=== PATIENT | female | born 1980 | race Caucasian/White ===

== ENCOUNTER 2020-02-29 11:24 | Inpatient (IN) | payer OTHER ==
--- NOTE | 2020-02-29 13:20 | Non Stress Test Report ---
Non Stress Test Datetime Report Generated by CPN: 02/29/2020 13:20 DEMOGRAPHIC EGA NST: 37.1 INDICATION Indication for Study (NST) Other: r/o labor VITAL SIGNS Temperature - NST: 98.0 Pulse - NST: 67 RESP - NST: 18 NBPSYS NST: 137 NBPDIA NST: 94 MONITORING Monitor Explained: Monitor Explained; Test Explained; Patient Verbalized Understanding Time on Monitor: 02/29/2020 12:03 Time off Monitor: 02/29/2020 13:17 NST Duration: 74 NST INTERVENTIONS NST Interventions: IV Fluids Physician Notified NST: A Turner CNM BABY A: [id number] BABY A Movement : Present Contraction Frequency : 2-4 FHR Baseline : 135 Accelerations : 15X15 Decelerations : None Variability : Moderate 6-25bpm NST Review: Meets Criteria for Reactive NST NST Review and Verified By : Andre Leon RN NST Results: Reactive NST REPORT Report Trigger: Send Report
[2020-02-29 14:00] LABS: ABSOLUTE BASOPHILS # (AUTO) 0.1 10^3/uL (0.0-0.2); ABSOLUTE EOSINOPHILS # (AUTO) 0.1 10^3/uL (0.0-0.6); ABSOLUTE MONOCYTES (AUTO) 0.5 10^3/uL (0.1-1.4); ABSOLUTE NEUT (AUTO) 7.4 10^3/uL (1.7-8.2); BASOPHILS % (AUTO) 0.7 % (0-2); EOSINOPHILS % (AUTO) 0.9 % (0-6); HEMATOCRIT 37.7 % (36.0-47.0); HEMOGLOBIN 13.3 g/dL (12.0-15.5); LYMPHOCYTES % (AUTO) 19.7 % (13-45); MEAN CORPUSCULAR HEMOGLOBIN 31.3 pg (27.0-33.4); MEAN CORPUSCULAR HGB CONC 35.3 g/dL (32.0-36.0); MEAN CORPUSCULAR VOLUME 89 fl (80-97); MONOCYTES % (AUTO) 5.3 % (3-13); RED BLOOD COUNT 4.25 10^6/uL (3.72-5.28); RED CELL DISTRIBUTION WIDTH 13.7 % (11.5-14.0); SEGMENTED NEUTROPHILS % (AUTO) 73.4 % (42-78); TOTAL CELLS COUNTED % (AUTO) 100 %; WHITE BLOOD COUNT 10.1 10^3/uL (4.0-10.5)
[2020-02-29] MEDS ORDERED: RINGERS SOLUTION,LACTATED 1,000 ML IV ONE (14:15)
[2020-02-29 14:21] LABS: URINE AMPHETAMINES SCREEN NEGATIVE; URINE BARBITURATES SCREEN NEGATIVE; URINE BENZODIAZEPINES SCREEN NEGATIVE; URINE COCAINE SCREEN NEGATIVE; URINE MARIJUANA (THC) SCREEN NEGATIVE; URINE METHADONE SCREEN NEGATIVE; URINE PHENCYCLIDINE SCREEN NEGATIVE
[2020-02-29 14:25] LABS: ALBUMIN 3.7 g/dL (3.5-5.0); ALKALINE PHOSPHATASE 116 U/L (38-126); ANION GAP 10 (5-19); ASPARTATE AMINO TRANSFERASE 38 U/L (14-36); BILIRUBIN,DIRECT 0.3 mg/dL (0.0-0.4); BILIRUBIN,TOTAL 0.8 mg/dL (0.2-1.3); BLOOD UREA NITROGEN 7 mg/dL (7-20); CALCIUM 9.8 mg/dL (8.4-10.2); CARBON DIOXIDE 16 mmol/L (22-30); CHLORIDE 108 mmol/L (98-107); GLUCOSE 80 mg/dL (75-110); POTASSIUM 4.1 mmol/L (3.6-5.0); TOTAL PROTEIN 6.8 g/dL (6.3-8.2); URIC ACID 4.7 mg/dL (2.5-7.0)
[2020-02-29 14:26] LABS: PLATELET COUNT 101 10^3/uL (150-450)
[2020-02-29 14:38] LABS: UR PRO/CREAT RATIO RESULT 0.2 mg/mg (0.0-0.2); URINE CREATININE 58.1 mg/dL (16-327); URINE PROTEIN 12.4 mg/dL (<12)
[2020-02-29] MEDS ORDERED: NORMAL SALINE 250 ML IV PRN ×2 (15:16)
[2020-02-29] MEDS ORDERED: CITRIC ACID/SODIUM CITRATE ORAL SOLN 15 ML UDCUP ONE (15:21)
[2020-02-29] MEDS ORDERED: CEFAZOLIN 2 GM/D5W RTU 2 GM/50 ML RTUPB IV ONE (15:21)
[2020-02-29] MEDS ORDERED: CEFAZOLIN SODIUM 2 GM in DEXTROSE 5%-WATER 50 ML IV PRN (15:25)
[2020-02-29] MEDS ORDERED: OXYTOCIN 10 UNIT/ML VIAL ONE (15:45)
[2020-02-29] MEDS ORDERED: MIDAZOLAM 2 MG/2 ML INJ ONE ×2 (15:46→16:53)
[2020-02-29] MEDS ORDERED: OXYTOCIN/0.9 % SODIUM CHLORIDE 30 UNIT/500 ML RTUINJ ONE (15:46)
[2020-02-29] MEDS ORDERED: ONDANSETRON HCL INJ/PF 4 MG/2 ML SDV ONE ×2 (15:46→17:49)
[2020-02-29] MEDS ORDERED: PHENYLEPHRINE HCL INJ/PF 10 MG/1 ML SDV ONE (15:46)
--- NOTE | 2020-02-29 16:18 | Admission Physical ---
Datetime Report Generated by CPN: 02/29/2020 16:18 CURRENT ADMISSION Chief Complaint: Uterine Contractions Indication for Induction: Not Applicable Admit Impression : Term, Intrauterine Admit Plan: Admit to Unit; Initiate Section Protocol ALLERGIES Medication Allergies: Yes Medication Allergies: Sulfa (Sulfonamide Antibiotics) (02/29/2020) Latex: Latex Allergies Food Allergies: n/a Environmental Allergies: n/a OBSTETRICAL HISTORY EDC: 03/20/2020 00:00 : 4 Para: 3 Term: 1 : 1 SAB: 1 IAB: 0 Ectopic: 0 Livin Cesareans: 2 VBACs: 0 Multiple Births: 1 Gestational Diabetes: No Rh Sensitization: No Incompetent Cervix: No LYNSEY: No Infertility: No ART Treatment: No Uterine Anomaly: No IUGR: No Hx Previous C/S: Yes Macrosomia: No Hx Loss/Stillborn: No PIH: Yes Hx : No Placenta Previa/Abruption: No Depression/PP Depression: No PTL/PROM: No Post Hemorrhage: No Current Procedures: Ultrasound Obstetrical History Comments: G1- Twin delivery 36.5, c/s pre-e, rt oopherectomy@17wks 09/28/2011 G2- SAB 2012 G3- C/S 38wks 05/11/2018 SEE RECORDS Alcohol: No Marijuana : No Cocaine: No Other Illicit Drugs: No Cigarettes: Never Smoker. 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 Heart Disease: No Hosp/Surgery: Yes Autoimmune Disorder: No Anesthetic Complications: No Kidney Disease: No Abnormal Pap Smear: No Neuro/Epilepsy: No Psychiatric Disorders: No Other Medical Diseases: No Hepatitis/Liver Disease: No Significant Family History: No Varicosities/Phlebitis: No Trauma/Violence : No Thyroid Dysfunction: No Medical History Comments: cholesytecomy 2013, breast reduction 2002, tube removal 2011, c/section 2018 INFECTIOUS HISTORY Gonorrhea: No Genital Herpes: No Chlamydia: No Tuberculosis: No Syphilis: No Hepatitis: No HIV/AIDS Exposure: No Rash or Viral Illness: No HPV: No PHYSICAL EXAM General: Normal HEENT: Normal Neurologic: Normal Thyroid: Normal Heart: Normal Lungs: Normal Breast: Deferred Back: Normal Abdomen: Normal Genitourinary Exam: Normal Extremities: Normal DTRs: Normal Pelvic Type: Adequate Vital Signs: Reviewed VAGINAL EXAM Dilatation: 0 Effacement: 0 Station: -3 MEMBRANES Pooling: Negative Membranes: Intact FETUS A EGA: 37.1 Monitoring: External US FHR- Baseline: 120 Variability: Moderate 6-25bpm Decelerations: None Presentation: Vertex Admit Comment: PT has an headache with mild range pressures and plts at 101. We will plan a c section with tubal ligation. PLANS FOR LABOR AND DELIVERY Labor and Delivery: None Pain Management: Spinal Feeding Preference: Formula Circumcision: N/A INFORMED CONSENT Signature: with User ID: [email or web address]
[2020-02-29] MEDS ORDERED: RINGERS SOLUTION,LACTATED 1,000 ML IV PRN (17:38)
[2020-02-29] MEDS ORDERED: SIMETHICONE 80 MG TAB.CHEW PO PRN (17:38)
[2020-02-29] MEDS ORDERED: DIPH/PERTUSS(ACELL)/TETANUS VAC/PF 0.5 ML SYR (>=10YO) IM PRN (17:38)
[2020-02-29] MEDS ORDERED: OXYCODONE-ACETAMINOPHEN 5-325 MG TABLET PO PRN ×2 (17:38)
[2020-02-29] MEDS ORDERED: PROMETHAZINE HCL INJ 25 MG/1 ML VIAL IV PRN (17:38)
[2020-02-29] MEDS ORDERED: MEASLES,MUMPS&RUBELLA VACC/PF 0.5 ML VIAL SUBCUT PRN (17:38)
[2020-02-29] MEDS ORDERED: ACETAMINOPHEN 1,000 MG/100 ML RTUPB IV PRN (17:38)
[2020-02-29] MEDS ORDERED: ACETAMINOPHEN 325 MG TABLET PO PRN (17:38)
[2020-02-29] MEDS ORDERED: OXYTOCIN/0.9 % SODIUM CHLORIDE 30 UNIT/500 ML RTUINJ IV PRN (17:38)
--- NOTE | 2020-02-29 17:49 | Operative Report ---
Operative Report DATE OF SURGERY: 02/29/20 PREOPERATIVE DIAGNOSIS: Repeat via low transverse uterine incision, m ildly elevated blood pressures, headache, platelets of 101, desires tubal ligation on remaining fallopian tube. POSTOPERATIVE DIAGNOSIS: Same OPERATION: Repeat via low transverse uterine incision, tubal ligation of the left fallopian tube with Filshie clip. SURGEON: GUILLERMO KING FIBER PRODUCT CUTTING MACHINE OPERATOR: MARYA SERRA ANESTHESIA: Spinal TISSUE REMOVED OR ALTERED: Placenta and left fallopian tube COMPLICATIONS: Large uterus with very thin lower uterine segment ESTIMATED BLOOD LOSS: 400 cc INTRAOPERATIVE FINDINGS: Large uterus, extremely thin lower uterine segment. A lso scarring at the level of the fascia and abdominal musculature PROCEDURE: The patient presented from the office with elevated blood pressures. She also complained of headache and platelets were 101. For these reasons we elected to proceed with a repeat as she was 37 weeks. Patient was taken the OR and a spinal was placed. She is placed in supine position. Her abdomen was prepared and draped in a sterile fashion her bladder was drained with a Watson catheter. A low transverse incision was made and carried down the level of fascia which was nicked in the midline. The fascial incision was extended bilaterally using curved Lockett scissors. The rectus muscles were in the midline and there is rather dense scarring at this area. The peritoneum was entered without incident. The bladder blade was placed in the lower uterine segment was identified. It was noted to be extremely thin. An incision was made and extended with fingertips. The baby was delivered with some fundal pressure headfirst. The cord was doubly clamped and cut and the infant was passed off to the pediatricians crying. The placenta was manually extracted with membranes. The uterus was wiped clean with moist lap sponge. I was unable to externalize the uterus because of its very large size. The uterine incision was closed with a running locking layer of 0 Vicryl. It was closed from the left edge of the incision to the midline and then a second suture closing from the right edge of the incision to the midline. This was done with a 0 chromic in a running locking fashion. There was some bleeding in the midline that was difficult to identify and Dr. Og scrubbed in at this point to assist. There was an extension of the uterine incision in the midline and this was closed with several interrupted sutures of 0 chromic in a [id number] fashion which stopped the bleeding. The pelvis was irrigated of fluid and suctioned free hemostasis was assured. The left fallopian tube was identified and followed out to its fimbriated end and a Filshie clip was placed at the mid isthmic portion. The right fallopian tube was reported to be absent. This area was very difficult to visualize because I was unable to asked generalized uterus. Next the abdominal wall peritoneum and rectus muscles were closed with a running 2-0 chromic stitch. The subfascial tissues were inspected for bleeding and the fascia was closed with a running 0 Vicryl in 2 segments. The wound was irrigated. Parul's layer was closed with a 2-0 plain gut stitch and skin closed with a running subcuticular 4-0 undyed Vicryl stitch. Patient was taken to the PACU. Mother and baby are both doing well.
[2020-02-29] MEDS ORDERED: ACETAMINOPHEN 1,000 MG/100 ML RTUPB IV ONE (17:57)
[2020-02-29] MEDS ORDERED: MORPHINE SULFATE 10 MG/ML INJ ONE (18:18)
[2020-02-29 19:39] LABS: HEMATOCRIT 38.5 % (36.0-47.0); HEMOGLOBIN 13.3 g/dL (12.0-15.5); MEAN CORPUSCULAR HEMOGLOBIN 30.9 pg (27.0-33.4); MEAN CORPUSCULAR HGB CONC 34.5 g/dL (32.0-36.0); MEAN CORPUSCULAR VOLUME 89 fl (80-97); PLATELET COUNT 160 10^3/uL (150-450); RED BLOOD COUNT 4.31 10^6/uL (3.72-5.28); RED CELL DISTRIBUTION WIDTH 13.3 % (11.5-14.0); WHITE BLOOD COUNT 11.1 10^3/uL (4.0-10.5)
--- NOTE | 2020-02-29 19:42 | Delivery Summary ---
Del Sum A-C Datetime Report Generated by CPN: 02/29/2020 19:42 DELIVERY PERSONNEL DELIVERY PERSONNEL: [id number] Delivery Doctor:: Fernando Flores MD FILLING STATION LABORER:: Jony Marques CRNA Labor and Delivery Nurse:: Krystal Lovell RN General Manager Farm:: Krystal Lovell RN Neonatal Nurse Practitioner:: GISSEL Flynn Nursery Nurse:: Nisha Quesada RN Supply Analyst/SUPERVISOR CUSTOMER RECORDS DIVISION: Annelise Champion CST Supply Analyst/SUPERVISOR CUSTOMER RECORDS DIVISION: Sharon Deutsch, RESEARCH PHYSIOLOGIST MATERNAL INFORMATION Delivery Anesthesia: Spinal Medications After Delivery: Pitocin 30 Units in 500ml NS/D5W Meds After Delivery Comment: 30 units of pitocin in 500mL NS/D5W x2 Delivery QBL: 1650 Maternal Complications: Hemorrhage LABOR SUMMARY EDC: 03/20/2020 00:00 No. Babies in Womb: 1 Attempted: No Labor Anesthesia: None LABOR INFORMATION Reason for Induction: Not Applicable Oxytocin: N/A Group B Beta Strep: negative Steroids Given: None Reason Steroids Not Administered: Not Applicable MEMBRANES Membranes Rupture Method: Artificial Rupture of Membranes: 02/29/2020 16:38 Length of Rupture (hr): -0.02 Amniotic Fluid Color: Clear Amniotic Fluid Amount: Large Amniotic Fluid Odor: Normal STAGES OF LABOR Stage 3 hr: 0 Stage 3 min: 3 VAGINAL DELIVERY Episiotomy: None Laceration #1: None Laceration Extension #1: N/A Laceration Repair: Not Applicable Sponge Count Correct: N/A Sharps Count Correct: N/A CSECTION DELIVERY Primary Indication: Repeat Elective Secondary Indication: Other Other Secondary Indication: elevated bp with BOONE and low platelets CSection Urgency: Non-Scheduled CSection Incidence: Repeat Labor: N/A Elective: Nonelective CSection Incision: Lower Uterine Transverse BABY A INFORMATION Delivery Date/Time: 02/29/2020 16:37 Method of Delivery: Nurse Controlled Delivery: No Born in Route : No : N/A Forceps: N/A Vacuum Extraction: N/A Shoulder Dystocia : No PRESENTATION/POSITION BABY A Presentation: Cephalic Cephalic Presentation: Vertex Breech Presentation: N/A PLACENTA INFORMATION BABY A Placenta Delivery Time : 02/29/2020 16:40 Placenta Method of Delivery: Manual Removal Placenta Status: Delivered SCORES BABY A Heart Rate 1 min: >100 bpm Resp Effort 1 min: Good Cry Reflex Irritability 1 min: Cough or Sneeze or Pulls Away Muscle Tone 1 min: Active Motion Color 1 min: Blue/Pale Resuscitation Effort 1 min: Tactile Stimulation SCORE 1 MIN: 8 Heart Rate 5 min: >100 bpm Resp Effort 5 min: Good Cry Reflex Irritability 5 min: Cough or Sneeze or Pulls Away Muscle Tone 5 min: Active Motion Color 5 min: Body [place], Extremities Blue Resuscitation Effort 5 min: N/A SCORE 5 MIN: 9 INFANT INFORMATION BABY A Gestational Age at Delivery: 37.1 Gestational Status: Early Term- 37- 38.6 Weeks Outcome : Liveborn Infant Condition : Stable Infant Sex: Female IDENTIFICATION BABY A Infant Verification Date/Time: 02/29/2020 18:32 ID Band Number: [id number] Mother's Name Verified: Yes RN Verifying : Irineo Chakraborty, RN Additional Verifying Personnel: Varsha Lovell RN WEIGHT/LENGTH BABY A Birthweight (gm): 3470 Infant Weight (lb): 7 Infant Weight (oz): 10 Length (in): 20.00 Infant Length (cm): 50.80 CORD INFORMATION BABY A No. Cord Vessels: 3 Nuchal Cord : N/A Cord Blood Taken: Yes-For Eval (Mom's Blood Type - or O+) Suction: Mouth ASSESSMENT BABY A Complications: None Physical Findings at Delivery: Within Normal Limits Respirations: Appears Normal Skin to Skin: No Merchant Police/ALS Called : Yes Care By: Camilo Quesada RN Transferred To: [facility] BABY B INFORMATION : N/A
--- NOTE | 2020-02-29 19:42 | Birth Certificate Data ---
Cert Data Datetime Report Generated by CPN: 02/29/2020 19:42 CERTIFICATE DATA Delivery Provider: Fernando Flores MD (02/29/2020 19:20:Krystal Lovell RN) 47a. Care: Yes (02/29/2020 11:34:Krystal Lovell RN) 47b. Date of First Visit: 08/31/2019 00:00 (02/29/2020 11:34:Krystal Lovell RN) 47c. Date of Last Visit: 02/29/2020 00:00 (02/29/2020 11:34:Krystal Lovell RN) 47d. Number of Visits: 12 (02/29/2020 11:34:Krystal Lovell RN) 48a. Number of Prev Live Births: 2 (02/29/2020 11:34:Krystal Lovell RN) 48b. Now Livin (02/29/2020 11:34:Krystal Lovell RN) 48c. Live Births Now : -1 (02/29/2020 11:34:QS system process) 48d. Date of Last Live : 05/11/2018 00:00 (02/29/2020 11:34:Krystal Lovell RN) 48e. Losses: 1 (02/29/2020 11:34:Krystal Lovell RN) RISK FACTORS IN THIS 49a. Diabetes: No (02/29/2020 11:34:Krystal Lovell RN) 49b. Hypertension: No (02/29/2020 11:34:Krystal Lovell RN) Type of Hypertension: Gestational (PIH, Pre-eclampsia) (02/29/2020 11:34:Krystal Lovell RN) 49c. Previous Births: 1 (02/29/2020 11:34:Krystal Lovell RN) 49d. Stillborns: No (02/29/2020 11:34:Krystal Lovell RN) 49d. IUGR: No (02/29/2020 11:34:Krystal Loevll RN) 49e. Infertility Treatment: No (02/29/2020 11:34:Krystal Lovell RN) 49f. Previous Cesareans: 2 (02/29/2020 11:34:Krystal Lovell RN) Mother's Height 50b. Height Inches: 73 (02/29/2020 19:01:QS system process) Mother's Weight 51a. Pre- Weight (lbs): 224 (02/29/2020 11:34:Krystal Lovell RN) 51b. Weight at Delivery (lbs): 266 (02/29/2020 19:01:QS system process) Infections Present/Treated 53a. Gonorrhea: No (02/29/2020 11:34:Krystal Lovell RN) Results this Hospital Visit : Negative (02/29/2020 11:34:Krystal Lovell RN) 53b. Syphilis: No (02/29/2020 11:34:Krystal Lovell RN) 53c. Chlamydia: No (02/29/2020 11:34:Krystal Lovell RN) Results this Hospital Visit: Negative (02/29/2020 11:34:Krystal Lovell RN) 53d. Hepatitis B: No (02/29/2020 11:34:Krystal Lovell RN) Results this Hospital Visit: Negative (02/29/2020 11:34:Krystal Lovell RN) 53e. Hepatitis C: Negative (02/29/2020 11:34:Krystal Lovell RN) 53h. Mother Tested for HBsAG: Yes (02/29/2020 11:34:Krystal Lovell RN) 53i. Date Tested: 08/31/2019 00:00 (02/29/2020 11:34:Krystal Lovell RN) 53j. Test Result: Negative (02/29/2020 11:34:Krystal Lovell RN) Obstetric Procedures 54a, b, c. Obstetric Procedures: Ultrasound (02/29/2020 11:34:Krystal Lovell RN) Cigarette Smoking Cigarette Smoking: Never Smoker. [id number] (02/29/2020 11:34:Krystal Lovell RN) Onset of Labor 56a. PROM >12 Hrs: -0.02 (02/29/2020 11:34:QS system process) 57a. Induction of Labor: N/A (02/29/2020 11:34:Krystal Lovell RN) 57c. Non-Vertex Presentation A: Vertex (02/29/2020 11:34:Krystal Lovell RN) 57d. Steroids - Lung Mat: None (02/29/2020 11:34:Krystal Lovell RN) 57d. Steroids - Lung Mat: Not Applicable (02/29/2020 11:34:Krystal Lovell RN) 57g. Moderate/Heavy Meconium: Clear (02/29/2020 11:34:Krystal Lovell RN) 57h. Intolerance of Labor: Repeat Elective (02/29/2020 11:34:Krystal Lovell RN) : Other (02/29/2020 11:34:Krystal Lovell RN) : elevated bp with BOONE and low platelets (02/29/2020 11:34:Krystal Lovell RN) 57i. Epidural/Spinal Anesthesia: None (02/29/2020 11:34:Krystal Lovell RN) Method of Delivery 58a. Forceps - Unsuccessful A: N/A (02/29/2020 11:34:Meera Sales, ) 58b. Vacuum - Unsuccessful A: N/A (02/29/2020 11:34:Meera Speed Dating by Chantilly Lace, ) 58c. Presentation at 58c. Presentation at - A : Vertex (02/29/2020 11:34:Krystal Lovell RN) 58c. Presentation at - A : N/A (02/29/2020 11:34:[facility]) 58c. Presentation at - A : Cephalic (02/29/2020 11:34:Krystal Lovell RN) Final Route and Method of Del 58d. Baby A Route/Delivery: (02/29/2020 11:34:Meera Chakraborty RN) 58e. Trial of Labor Attempted: No (02/29/2020 11:34:Krystal Lovell RN) 58e. Trial of Labor Attempted A: N/A (02/29/2020 11:34:Meera Chakraborty RN) 58e. Trial of Labor Attempted B: N/A (02/29/2020 11:34:Krystal Lovell RN) Maternal Morbidity 59b. 3rd or 4th Degree Lacs: None (02/29/2020 11:34:Krystal Lovell RN) Birthweight Baby A: 3470 (02/29/2020 11:34:Krystal Lovell RN) 60a. Pounds : 7 (02/29/2020 11:34:QS system process) 60b. Ounces: 10 (02/29/2020 11:34:QS system process) 61. GA at Delivery Baby A: 37.1 (02/29/2020 11:34:Meera Sales, RN) : Early Term- 37- 38.6 Weeks (02/29/2020 11:34:QS system process) 62a. 5 Minute Baby A: 9 (02/29/2020 11:34:QS system process)
[2020-02-29] MEDS: KETOROLAC TROMETHAMINE INJ/PF 30 MG/1 ML SDV IV SCH (22:50)
[2020-03-01] MEDS: KETOROLAC TROMETHAMINE INJ/PF 30 MG/1 ML SDV IV SCH ×2 (05:26→14:05)
[2020-03-01 06:54] LABS: HEMATOCRIT 32.2 % (36.0-47.0); HEMOGLOBIN 11.3 g/dL (12.0-15.5); MEAN CORPUSCULAR HEMOGLOBIN 31.1 pg (27.0-33.4); MEAN CORPUSCULAR HGB CONC 35.3 g/dL (32.0-36.0); MEAN CORPUSCULAR VOLUME 88 fl (80-97); PLATELET COUNT 152 10^3/uL (150-450); RED BLOOD COUNT 3.64 10^6/uL (3.72-5.28); WHITE BLOOD COUNT 12.4 10^3/uL (4.0-10.5)
[2020-03-01] MEDS: IBUPROFEN 800 MG TABLET PO SCH ×4 (07:42→23:22)
--- NOTE | 2020-03-01 09:20 | PDOC PROGRESS REPORT ---
Subjective-OB Progress Note for:: 03/01/20 Subjective: Doing well, feeling better, bottle feeding, pain under control, eating and drinking, no flatus Physical Exam (OB) Vital Signs: Temp Pulse Resp BP Pulse Ox 97.2 F 71 14 134/68 H 96 03/01/20 08:00 03/01/20 08:00 03/01/20 08:00 03/01/20 08:00 03/01/20 08:00 Intake & Output 02/29/20 03/01/20 03/02/20 06:59 06:59 06:59 Intake Total 1100 Output Total 1100 Balance 0 Weight 120.5 kg - PIH/Pre-Eclampsia Clonus: Negative Headache: Absent Epigastric Pain: No Visual Changes: No - Incision: Dressing Closure Type: Opsite - Maternal Morbidity 59. Maternal Morbidity (serious complications experinced by the mother associated with labor and delivery: None of the above - Lochia Lochia Amount: Scant < 10 ml Lochia Color: Rubra/Red - Abdomen Description: Tender, Soft, Round Hernia Present: No Fundal Description: Firm, Midline Fundal Height: u/u - u/2 Objective-Diagnostic Laboratory: 03/01/20 06:40 02/29/20 13:48 02/29/20 02/29/20 02/29/20 13:48 13:48 15:42 WBC 10.1 RBC 4.25 Hgb 13.3 Hct 37.7 MCV 89 MCH 31.3 MCHC 35.3 RDW 13.7 Plt Count 101 L Seg Neutrophils % 73.4 Sodium 134.4 L Potassium 4.1 Chloride 108 H Carbon Dioxide 16 L Anion Gap 10 BUN 7 Creatinine 0.44 L Est GFR ( Amer) > 60 Glucose 80 Uric Acid 4.7 Calcium 9.8 Total Bilirubin 0.8 AST 38 H Alkaline Phosphatase 116 Total Protein 6.8 Albumin 3.7 Blood Type O POSITIVE Antibody Screen NEGATIVE 02/29/20 03/01/20 18:19 06:40 WBC 11.1 H 12.4 H RBC 4.31 3.64 L Hgb 13.3 11.3 L Hct 38.5 32.2 L MCV 89 88 MCH 30.9 31.1 MCHC 34.5 35.3 RDW 13.3 13.0 Plt Count 160 152 Seg Neutrophils % Sodium Potassium Chloride Carbon Dioxide Anion Gap BUN Creatinine Est GFR ( Amer) Glucose Uric Acid Calcium Total Bilirubin AST Alkaline Phosphatase Total Protein Albumin Blood Type Antibody Screen Assessment and Plan(PN) - Assessment and Plan (1) Tubal ligation status Is this a current diagnosis for this admission?: Yes (2) Status post repeat low transverse section Is this a current diagnosis for this admission?: Yes (3) Headache Qualifiers: Headache type: unspecified Is this a current diagnosis for this admission?: Yes (4) Gestational hypertension Qualifiers: Trimester: unspecified trimester Qualified Code(s): O13.9 - Gestational [-induced] hypertension without significant proteinuria, unspecified trimester Is this a current diagnosis for this admission?: Yes - Time Spent with Patient Time with patient: Less than 15 minutes Medications reviewed and adjusted accordingly: Yes - Disposition Anticipated Discharge Disposition: Home, Self Care Anticipated Discharge Timeframe: within 48 hours
[2020-03-01] MEDS: DOCUSATE SODIUM 100 MG CAPSULE PO SCH ×3 (10:30→18:55)
[2020-03-01] MEDS: PRENATAL VITAMIN W DHA CAPSULE PO SCH (11:12)
[2020-03-02] MEDS: IBUPROFEN 800 MG TABLET PO SCH (05:46)
[2020-03-02 09:09] VITALS: BP 131/71
--- NOTE | 2020-03-02 10:07 | PDOC DISCHARGE SUMMARY ---
Impression - Admit/DC Date/PCP Admission Date/Primary Care Provider: 02/29/20 15:25 GUILLERMO PEACE MD Discharge Date: 03/02/20 - Discharge Diagnosis (1) Gestational hypertension Is this a current diagnosis for this admission?: Yes (2) Headache Is this a current diagnosis for this admission?: Yes (3) Status post repeat low transverse section Is this a current diagnosis for this admission?: Yes (4) Tubal ligation status Is this a current diagnosis for this admission?: Yes - Additional Information Resuscitation Status: Full Code Discharge Diet: Regular Discharge Activity: Balance Activity w/Rest, No Lifting Over 10 Pounds, No Lifting/Push/Pulling, Pelvic Rest, No tub bath Referrals: GUILLERMO PEACE MD [Primary Care Provider] - Prescriptions: Oxycodone HCl/Acetaminophen [Percocet 5-325 mg Tablet] 1 tab PO Q4HP PRN #30 tablet PRN Reason: For Pain Scale 3-5 Ibuprofen [Motrin 800 mg Tablet] 800 mg PO Q8HP PRN #30 tablet PRN Reason: Home Medications: Vit,Calc76/Iron/Folic [Prenatabs Rx Tablet] 1 each PO DAILY 02/29/20 Ibuprofen [Motrin 800 mg Tablet] 800 mg PO Q8HP PRN #30 tablet 03/02/20 Oxycodone HCl/Acetaminophen [Percocet 5-325 mg Tablet] 1 tab PO Q4HP PRN #30 tablet 03/02/20 HPI Gestational Age: 37.1 Reason(s) for Admission: Onset of Labor, PIH Procedures: NST Intrapartum Procedure(s): : Low Cervical, Transverse Hospital Course 59. Maternal Morbidity (serious complications experinced by the mother associated with labor and delivery: None of the above Results Laboratory Results: WBC 12.4 10^3/uL (4.0-10.5) H 03/01/20 06:40 RBC 3.64 10^6/uL (3.72-5.28) L 03/01/20 06:40 Hgb 11.3 g/dL (12.0-15.5) L 03/01/20 06:40 Hct 32.2 % (36.0-47.0) L 03/01/20 06:40 MCV 88 fl (80-97) 03/01/20 06:40 MCH 31.1 pg (27.0-33.4) 03/01/20 06:40 MCHC 35.3 g/dL (32.0-36.0) 03/01/20 06:40 RDW 13.0 % (11.5-14.0) 03/01/20 06:40 Plt Count 152 10^3/uL (150-450) 03/01/20 06:40 Lymph % (Auto) 19.7 % (13-45) 02/29/20 13:48 [place] % (Auto) 5.3 % (3-13) 02/29/20 13:48 Eos % (Auto) 0.9 % (0-6) 02/29/20 13:48 Baso % (Auto) 0.7 % (0-2) 02/29/20 13:48 Absolute Neuts (auto) 7.4 10^3/uL (1.7-8.2) 02/29/20 13:48 Absolute Lymphs (auto) 2.0 10^3/uL (0.5-4.7) 02/29/20 13:48 Absolute Monos (auto) 0.5 10^3/uL (0.1-1.4) 02/29/20 13:48 Absolute Eos (auto) 0.1 10^3/uL (0.0-0.6) 02/29/20 13:48 Absolute Basos (auto) 0.1 10^3/uL (0.0-0.2) 02/29/20 13:48 Seg Neutrophils % 73.4 % (42-78) 02/29/20 13:48 Sodium 134.4 mmol/L (137-145) L 02/29/20 13:48 Potassium 4.1 mmol/L (3.6-5.0) 02/29/20 13:48 Chloride 108 mmol/L (98-107) H 02/29/20 13:48 Carbon Dioxide 16 mmol/L (22-30) L 02/29/20 13:48 Anion Gap 10 (5-19) 02/29/20 13:48 BUN 7 mg/dL (7-20) 02/29/20 13:48 Creatinine 0.44 mg/dL (0.52-1.25) L 02/29/20 13:48 Est GFR ( Amer) > 60 (>60) 02/29/20 13:48 Est GFR (MDRD) Non-Af > 60 (>60) 02/29/20 13:48 Glucose 80 mg/dL (75-110) 02/29/20 13:48 Uric Acid 4.7 mg/dL (2.5-7.0) 02/29/20 13:48 Calcium 9.8 mg/dL (8.4-10.2) 02/29/20 13:48 Total Bilirubin 0.8 mg/dL (0.2-1.3) 02/29/20 13:48 Direct Bilirubin 0.3 mg/dL (0.0-0.4) 02/29/20 13:48 Neonat Total Bilirubin Not Reportable 02/29/20 13:48 Neonat Direct Bilirubin Not Reportable 02/29/20 13:48 Neonat Indirect Bili Not Reportable 02/29/20 13:48 AST 38 U/L (14-36) H 02/29/20 13:48 ALT 14 U/L (<35) 02/29/20 13:48 Alkaline Phosphatase 116 U/L (38-126) 02/29/20 13:48 Lactate Dehydrogenase 307 U/L (120-246) H 02/29/20 13:48 Total Protein 6.8 g/dL (6.3-8.2) 02/29/20 13:48 Albumin 3.7 g/dL (3.5-5.0) 02/29/20 13:48 Urine Creatinine 58.1 mg/dL (16-327) 02/29/20 13:36 Protein/Creatinin Ratio 0.2 mg/mg (0.0-0.2) 02/29/20 13:36 Urine Total Protein 12.4 mg/dL (<12) H 02/29/20 13:36 Urine Opiates Screen NEGATIVE 02/29/20 13:36 Urine Methadone Screen NEGATIVE 02/29/20 13:36 Ur Barbiturates Screen NEGATIVE 02/29/20 13:36 Ur Phencyclidine Scrn NEGATIVE 02/29/20 13:36 Ur Amphetamines Screen NEGATIVE 02/29/20 13:36 U Benzodiazepines Scrn NEGATIVE 02/29/20 13:36 Urine Cocaine Screen NEGATIVE 02/29/20 13:36 U Marijuana (THC) Screen NEGATIVE 02/29/20 13:36 RPR NONREACTIVE (NONREACTIVE) 02/29/20 15:42 Influenza A (RT-PCR) NEGATIVE (NEGATIVE) 02/29/20 16:00 Influenza B (RT-PCR) NEGATIVE (NEGATIVE) 02/29/20 16:00 RSV (RT-PCR) NEGATIVE (NEGATIVE) 02/29/20 16:00 SARS-CoV-2 Rap RNA(RT-PCR) NEGATIVE (NEGATIVE) 02/29/20 16:00 Blood Type O POSITIVE 02/29/20 15:42 Blood Type Confirm O POSITIVE 02/29/20 18:19 Antibody Screen NEGATIVE 02/29/20 15:42 Crossmatch See Detail 02/29/20 15:42 Plan Plan of Treatment: f/u at [facility] on Saturday for incision check Time Spent: Less than 30 Minutes
[2020-03-02] MEDS: PRENATAL VITAMIN W DHA CAPSULE PO SCH (10:31)
[2020-03-02] MEDS: DOCUSATE SODIUM 100 MG CAPSULE PO SCH (10:31)
== END 2020-03-02 12:55 | disposition home or self-care (01) | DRG 785 ==
LOC: LC 11:24 → LR 15:25 → 2S 20:35
PROVIDERS: ADMIT Obstetrics & Gynecology; ATTEND Obstetrics & Gynecology
PROC: 10D00Z1 Extraction of Products of Conception, Low, Open Approach (ICD-10-PCS; principal; 2020-02-29)
PROC: 0UL60CZ Occlusion of Left Fallopian Tube with Extraluminal Device, Open Approach (ICD-10-PCS; 2020-02-29)
DX: O13.4 Gestational [pregnancy-induced] hypertension without significant proteinuria, complicating childbirth (principal); Z30.2 Encounter for sterilization; O34.211 Maternal care for low transverse scar from previous cesarean delivery; Z37.0 Single live birth; Z20.828 Contact with and (suspected) exposure to other viral communicable diseases; Z28.21 Immunization not carried out because of patient refusal; Z90.79 Acquired absence of other genital organ(s); Z3A.37 37 weeks gestation of pregnancy; Z88.2 Allergy status to sulfonamides; Z91.040 Latex allergy status
CPT/HCPCS: 1961; 36415; 80053; 80307; 82570; 83615; 84156; 84550; 85025; 85027; 86592; 86850; 86900; 86901; 86920; 94760; 94799; 0241U; C9803; J0131; J0690; J1885; J2250; J2270; J2370; J2405; J2590; J3490